=== PATIENT | female | born 1995 | race Caucasian/White ===

== ENCOUNTER 2017-04-03 21:27 | Emergency (ER) | payer OTHER ==
--- NOTE | 2017-04-03 22:48 | ED CLINICAL REPORT ---
Clinical Report - Physicians/Mid Levels [facility] [address] [place] [address] 04/03/2017 21:29 Patient: KARIN MCCAIN Time Seen: 22:11 Apr 03 2017. Arrived- By private vehicle. Historian- patient. CPT: ER phys charges level 3 (#[id number]). HISTORY OF PRESENT ILLNESS Chief Complaint: DYSURIA. 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 The symptoms are described as moderate. Modifying factors- worsened by urination. Not relieved by anything. The patient has had mild abdominal pain. The pain is described as located in the suprapubic region. She has had pain with urination and urgency of urination. The patient has had urinary frequency. Sexually active. Similar symptoms previously: As bad. Diagnosis: UTI. Recent medical care: Not recently seen/assessed. REVIEW OF SYSTEMS No nausea, vomiting, diarrhea, black stools or fever. No chills, sore throat, cough, difficulty breathing or chest pain. No skin rash. All systems otherwise negative, except as recorded above. SOCIAL HISTORY Light tobacco smoker (cigarette)- less than 1/2 a pack per day. Occasional alcohol use. History of drug use: marijuana. ADDITIONAL NOTES The nursing notes have been reviewed. PHYSICAL EXAM Vital Signs: 04/03/2017 21:39 BP: 129/77. HR: 112. RR: 20. O2 saturation: 100%. Temp: 98.5 F. Pain level now: 10/10. Appearance: Alert. No acute distress. HEENT: Normal external inspection. CVS: Heart sounds normal. Respiratory: No respiratory distress. Abdomen: Soft. Mild tenderness in the suprapubic area. Back: Normal external inspection. No CVA tenderness. Skin: Normal skin color. Extremities: Extremities nontender. Neuro: Oriented X 3. LABS, X-RAYS, AND EKG Laboratory Tests: UA-Culture if indicated: (ALEX: 04/03/2017 21:43) ( MsgRcvd 04/03/2017 22:34) Final results Test Result Flag Units (Reference) URINE COLOR YELLOW URINE APPEARANCE SLIGHTLY HAZY URINE GLUCOSE NEGATIVE (NEGATIVE) URINE BILIRUBIN NEGATIVE (NEGATIVE) URINE KETONE NEGATIVE (NEGATIVE) URINE SPECIFIC GRAVITY 1.015 (1.010-1.030) URINE PH 6.0 (5.0-8.0) URINE PROTEIN NEGATIVE (NEGATIVE) URINE UROBILINOGEN 0.2 EU/dL (0.2-1.0) URINE NITRITE NEGATIVE (NEGATIVE) URINE BLOOD 3+ (NEGATIVE) URINE LEUK ESTERASE POSITIVE (NEGATIVE) URINE RBC 10-25 rbc/hpf (0-1) URINE WBC 50-75 wbc/hpf (0-1) URINE EPITHELIAL CELLS 5-10 EPI/hpf (0-5) URINE BACTERIA FEW (1+) (NONE SEEN) URINE COMMENT CULTURE INDICATED URINE CULTURES ARE SET-UP BASED ON THE FOLLOWING CRITERIA:POSITIVE NITRITEPOSITIVE LEUKOCYTE ESTERASEGREATER THAN 10 WHITE BLOOD CELLSMODERATE (2+) OR GREATER BACTERIA Urine: (ALEX: 04/03/2017 21:43) ( MsgRcvd 04/03/2017 22:31) Final results Test Result Flag Units (Reference) URINE NEGATIVE . PROGRESS AND PROCEDURES Course of Care: Bactrim 2 po Pyridium 200 mg po Vicodin 2 po Patient is stable. Symptoms better. Patient/family counseled. Disposition: Discharged. Condition: stable. CLINICAL IMPRESSION Acute urinary tract infection with cystitis. INSTRUCTIONS Do not work tomorrow, for one day until better. Drink plenty of fluids. No sexual contact. Warnings: Further evaluation is necessary. GENERAL WARNINGS: Return or contact your physician immediately if your condition worsens or changes unexpectedly, if not improving as expected, or if other problems arise. Prescription Medications: Pyridium 200 mg: take 1 orally every 8 hours as needed for urinary problems. Dispense six (6). No refills. Substitution is permissible. Septra DS 800 mg / 160 mg: take 1 tablet orally every 12 hours for 7 days. Dispense fourteen (14). No refills. Substitution is permissible. Follow-up: Follow up with your doctor in one week. Call for an appointment. Understanding of the discharge instructions verbalized by patient and family. (Electronically signed by Rafael Nogueira MD 04/06/2017 8:52)
--- NOTE | 2017-04-03 22:48 | ED CLINICAL REPORT ---
Clinical Report - Physicians/Mid Levels [facility] [address] [place] [address] 04/03/2017 21:29 Patient: KARIN MCCAIN Time Seen: 22:11 Apr 03 2017. Arrived- By private vehicle. Historian- patient. CPT: ER phys charges level 3 (#[id number]). HISTORY OF PRESENT ILLNESS Chief Complaint: DYSURIA. 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 The symptoms are described as moderate. Modifying factors- worsened by urination. Not relieved by anything. The patient has had mild abdominal pain. The pain is described as located in the suprapubic region. She has had pain with urination and urgency of urination. The patient has had urinary frequency. Sexually active. Similar symptoms previously: As bad. Diagnosis: UTI. Recent medical care: Not recently seen/assessed. REVIEW OF SYSTEMS No nausea, vomiting, diarrhea, black stools or fever. No chills, sore throat, cough, difficulty breathing or chest pain. No skin rash. All systems otherwise negative, except as recorded above. SOCIAL HISTORY Light tobacco smoker (cigarette)- less than 1/2 a pack per day. Occasional alcohol use. History of drug use: marijuana. ADDITIONAL NOTES The nursing notes have been reviewed. PHYSICAL EXAM Vital Signs: 04/03/2017 21:39 BP: 129/77. HR: 112. RR: 20. O2 saturation: 100%. Temp: 98.5 F. Pain level now: 10/10. Appearance: Alert. No acute distress. HEENT: Normal external inspection. CVS: Heart sounds normal. Respiratory: No respiratory distress. Abdomen: Soft. Mild tenderness in the suprapubic area. Back: Normal external inspection. No CVA tenderness. Skin: Normal skin color. Extremities: Extremities nontender. Neuro: Oriented X 3. LABS, X-RAYS, AND EKG Laboratory Tests: UA-Culture if indicated: (ALEX: 04/03/2017 21:43) ( MsgRcvd 04/03/2017 22:34) Final results Test Result Flag Units (Reference) URINE COLOR YELLOW URINE APPEARANCE SLIGHTLY HAZY URINE GLUCOSE NEGATIVE (NEGATIVE) URINE BILIRUBIN NEGATIVE (NEGATIVE) URINE KETONE NEGATIVE (NEGATIVE) URINE SPECIFIC GRAVITY 1.015 (1.010-1.030) URINE PH 6.0 (5.0-8.0) URINE PROTEIN NEGATIVE (NEGATIVE) URINE UROBILINOGEN 0.2 EU/dL (0.2-1.0) URINE NITRITE NEGATIVE (NEGATIVE) URINE BLOOD 3+ (NEGATIVE) URINE LEUK ESTERASE POSITIVE (NEGATIVE) URINE RBC 10-25 rbc/hpf (0-1) URINE WBC 50-75 wbc/hpf (0-1) URINE EPITHELIAL CELLS 5-10 EPI/hpf (0-5) URINE BACTERIA FEW (1+) (NONE SEEN) URINE COMMENT CULTURE INDICATED URINE CULTURES ARE SET-UP BASED ON THE FOLLOWING CRITERIA:POSITIVE NITRITEPOSITIVE LEUKOCYTE ESTERASEGREATER THAN 10 WHITE BLOOD CELLSMODERATE (2+) OR GREATER BACTERIA Urine: (ALEX: 04/03/2017 21:43) ( MsgRcvd 04/03/2017 22:31) Final results Test Result Flag Units (Reference) URINE NEGATIVE . PROGRESS AND PROCEDURES Course of Care: Bactrim 2 po Pyridium 200 mg po Vicodin 2 po Patient is stable. Symptoms better. Patient/family counseled. Disposition: Discharged. Condition: stable. CLINICAL IMPRESSION Acute urinary tract infection with cystitis. INSTRUCTIONS Do not work tomorrow, for one day until better. Drink plenty of fluids. No sexual contact. Warnings: Further evaluation is necessary. GENERAL WARNINGS: Return or contact your physician immediately if your condition worsens or changes unexpectedly, if not improving as expected, or if other problems arise. Prescription Medications: Pyridium 200 mg: take 1 orally every 8 hours as needed for urinary problems. Dispense six (6). No refills. Substitution is permissible. Septra DS 800 mg / 160 mg: take 1 tablet orally every 12 hours for 7 days. Dispense fourteen (14). No refills. Substitution is permissible. Follow-up: Follow up with your doctor in one week. Call for an appointment. Understanding of the discharge instructions verbalized by patient and family. (Electronically signed by Rafael Nogueira MD 04/06/2017 8:52)
--- NOTE | 2017-04-03 22:48 | ED ORDER SUMMARY ---
..... Patient: KARIN MCCAIN OrderSheet [facility] VisitID: [id number] [place] [address] 21y, F Registration Date/Time: 04/03/2017 ORDER SHEET Weight: 72.5 kg (stated) Allergies: No Known Drug Allergy GENERAL ORDERS: UA-Culture if indicated Urgent (21:56 04/03/2017 HSoule per protocol) (Ack 22:00 HSoule) (22:05 SSambou R.N.) Urine Urgent (21:56 04/03/2017 HSoule per protocol) (Ack 22:00 HSoule) (22:05 Roseannembconnor R.N.) MEDICATION ORDERS: Bactrim DS PO (Tablet 800-160 mg) 2 tabs (NOW) (22:46 04/03/2017 Nicole SANDERS) (22:56 SSambconnor R.N.) Pyridium PO 200 mg (NOW) (22:47 04/03/2017 Nicole SANDERS) (22:56 Roseannembconnor R.N.) Hydrocodone-APAP PO 10/650 mg (NOW) (23:00 04/03/2017 Nicole SANDERS) (23:03 Kayleen R.N.) IV FLUIDS: ORDER SHEET NOTES: [Electronically signed by Sheriff Shirin Franco (23:04 04/03/2017)] [Electronically signed by Rafael Nogueira MD (08:52 04/06/2017)] [Electronically locked/signed by Sheriff Shirin Franco (23:04 04/03/2017)]
--- NOTE | 2017-04-03 22:48 | ED NURSING NOTES ---
Clinical Report - Nurses [facility] [address] [address] 04/03/2017 21:29 Patient: KARIN MCCAIN TRIAGE Triage time 21:41. Acuity: LEVEL 3. Chief Complaint: PAINFUL URINATION and FREQUENCY and ABDOMINAL PAIN. --21:44 Sheriff Franco R.N. 21:39 04/03/17. BP: 129/77. HR: 112. RR: 20. O2 saturation: 100%. Temp: 98.5 F. Pain level now: 06/30. --21:44 Sheriff Franco R.N. Weight: 72.5 kg stated. Height/Length: 64 inches Per Patient. BMI: 27.5. --21:40 Sheriff Franco R.N. Medications None. --21:42 Sheriff Franco R.N. Allergies No Known Drug Allergy. --21:42 Sheriff Franco R.N. History Arrived by private vehicle. Historian: patient. Accompanied by friend. Onset. (4 days ago). PAST MEDICAL HX: Denies current : 1 week. SURGERY HX: Tonsillectomy. SOCIAL HX: Smoker- current status unknown (cigarette) (3). Alcohol use; consumes liquor occasionally. History of drug use: marijuana. FALL RISK ASSESSMENT: Fall risk assessment completed. No fall risk identified. NUTRITIONAL RISK ASSESSMENT: The nutritional risk assessment revealed no deficiencies. FUNCTIONAL ASSESSMENT: Functional assessment: no impairments noted. LEARNING NEEDS ASSESSMENT: The learning needs assessment revealed no barriers. SKIN INTEGRITY ASSESSMENT: Skin integrity risk assessment completed. No skin integrity risk identified. --21:44 Sheriff Franco R.N. PROBLEMS: None. --21:42 Sheriff Franco R.N. PHYSICAL ASSESSMENT Ambulatory to room. GENERAL / NEURO / PSYCH: Alert. Oriented X 4. Appears in no acute distress. HEENT: Mucous membranes are pink. RESPIRATORY: Respirations not labored. CVS: Capillary refill less than 2 seconds. SKIN: Skin is warm and dry. --21:44 Sheriff Franco R.N. NURSING PROGRESS NOTES Head of bed elevated. Two patient identifiers checked. Call light placed in reach. Side rails up x 2. Bed placed in lowest position. Brakes of bed on. --21:44 Sheriff Franco R.N. Patient ID band checked for patient name and birthdate: patient confirmed. Instructions provided to collect clean catch urine and patient verbalized understanding. Clean catch urine collected with return of yellow-colored clear urine; sample sent to lab for urinalysis. Specimen labeled in the presence of the patient. --21:57 Arielle Ange 22:56 04/03/2017 Bactrim DS (Sulfamethoxazole-TMP DS) PO 2 tab given. Allergies verified and confirmed 5 rights. --22:56 Sheriff Franco R.N. 22:56 04/03/2017 Pyridium (Phenazopyridine HCl) PO 200 mg given. Allergies verified and confirmed 5 rights. --22:56 Sheriff Franco R.N. 23:03 04/03/2017 Hydrocodone-APAP (Hydrocodone-Acetaminophen) PO 5/325 mg Tablets 2 tab given. Allergies verified, confirmed 5 rights and sedative warning given to the patient. --23:03 Sheriff Franco R.N. DISPOSITION / DISCHARGE Condition at departure: stable. No learning barriers present. Discharge instructions provided and reviewed with the patient. Reviewed medication(s) side effects, precautions, dosing and course information. Prescription(s) given to the parent. Patient verbalized understanding. Written instructions provided in Swiss. The patient was discharged by the physician. She was discharged home and accompanied by family. She left the Emergency Department ambulatory and via private vehicle. Family member driving. --23:04 Sheriff Franco R.N. Locked/Released at 04/03/2017 23:04 by Sheriff Franco R.N.
--- NOTE | 2017-04-03 22:48 | ED ORDER SUMMARY ---
..... Patient: KARIN MCCAIN OrderSheet [facility] VisitID: [id number] [place] [address] 21y, F Registration Date/Time: 04/03/2017 ORDER SHEET Weight: 72.5 kg (stated) Allergies: No Known Drug Allergy GENERAL ORDERS: UA-Culture if indicated Urgent (21:56 04/03/2017 HSoule per protocol) (Ack 22:00 HSoule) (22:05 SSambou R.N.) Urine Urgent (21:56 04/03/2017 HSoule per protocol) (Ack 22:00 HSoule) (22:05 Roseannembconnor R.N.) MEDICATION ORDERS: Bactrim DS PO (Tablet 800-160 mg) 2 tabs (NOW) (22:46 04/03/2017 Nicole SANDERS) (22:56 SSambconnor R.N.) Pyridium PO 200 mg (NOW) (22:47 04/03/2017 Nicole SANDERS) (22:56 Roseannembconnor R.N.) Hydrocodone-APAP PO 10/650 mg (NOW) (23:00 04/03/2017 Nicole SANDERS) (23:03 Kayleen R.N.) IV FLUIDS: ORDER SHEET NOTES: [Electronically signed by Sheriff Shirin Franco (23:04 04/03/2017)] [Electronically signed by Rafael Nogueira MD (08:52 04/06/2017)] [Electronically locked/signed by Sheriff Shirin Franco (23:04 04/03/2017)]
--- NOTE | 2017-04-03 22:48 | ED NURSING NOTES ---
Clinical Report - Nurses [facility] [place] [address] [address] 04/03/2017 21:29 Patient: KARIN MCCAIN TRIAGE Triage time 21:41. Acuity: LEVEL 3. Chief Complaint: PAINFUL URINATION and FREQUENCY and ABDOMINAL PAIN. --21:44 Sheriff Franco R.N. 21:39 04/03/17. BP: 129/77. HR: 112. RR: 20. O2 saturation: 100%. Temp: 98.5 F. Pain level now: 06/30. --21:44 Sheriff Franco R.N. Weight: 72.5 kg stated. Height/Length: 64 inches Per Patient. BMI: 27.5. --21:40 Sheriff Franco R.N. Medications None. --21:42 Sheriff Franco R.N. Allergies No Known Drug Allergy. --21:42 Sheriff Franco R.N. History Arrived by private vehicle. Historian: patient. Accompanied by friend. Onset. (4 days ago). PAST MEDICAL HX: Denies current : 1 week. SURGERY HX: Tonsillectomy. SOCIAL HX: Smoker- current status unknown (cigarette) (3). Alcohol use; consumes liquor occasionally. History of drug use: marijuana. FALL RISK ASSESSMENT: Fall risk assessment completed. No fall risk identified. NUTRITIONAL RISK ASSESSMENT: The nutritional risk assessment revealed no deficiencies. FUNCTIONAL ASSESSMENT: Functional assessment: no impairments noted. LEARNING NEEDS ASSESSMENT: The learning needs assessment revealed no barriers. SKIN INTEGRITY ASSESSMENT: Skin integrity risk assessment completed. No skin integrity risk identified. --21:44 Sheriff Franco R.N. PROBLEMS: None. --21:42 Sheriff Franco R.N. PHYSICAL ASSESSMENT Ambulatory to room. GENERAL / NEURO / PSYCH: Alert. Oriented X 4. Appears in no acute distress. HEENT: Mucous membranes are pink. RESPIRATORY: Respirations not labored. CVS: Capillary refill less than 2 seconds. SKIN: Skin is warm and dry. --21:44 Sheriff Franco R.N. NURSING PROGRESS NOTES Head of bed elevated. Two patient identifiers checked. Call light placed in reach. Side rails up x 2. Bed placed in lowest position. Brakes of bed on. --21:44 Sheriff Franco R.N. Patient ID band checked for patient name and birthdate: patient confirmed. Instructions provided to collect clean catch urine and patient verbalized understanding. Clean catch urine collected with return of yellow-colored clear urine; sample sent to lab for urinalysis. Specimen labeled in the presence of the patient. --21:57 Arielle Ange 22:56 04/03/2017 Bactrim DS (Sulfamethoxazole-TMP DS) PO 2 tab given. Allergies verified and confirmed 5 rights. --22:56 Sheriff Franco R.N. 22:56 04/03/2017 Pyridium (Phenazopyridine HCl) PO 200 mg given. Allergies verified and confirmed 5 rights. --22:56 Sheriff Franco R.N. 23:03 04/03/2017 Hydrocodone-APAP (Hydrocodone-Acetaminophen) PO 5/325 mg Tablets 2 tab given. Allergies verified, confirmed 5 rights and sedative warning given to the patient. --23:03 Sheriff Franco R.N. DISPOSITION / DISCHARGE Condition at departure: stable. No learning barriers present. Discharge instructions provided and reviewed with the patient. Reviewed medication(s) side effects, precautions, dosing and course information. Prescription(s) given to the parent. Patient verbalized understanding. Written instructions provided in Tunisian. The patient was discharged by the physician. She was discharged home and accompanied by family. She left the Emergency Department ambulatory and via private vehicle. Family member driving. --23:04 Sheriff Franco R.N. Locked/Released at 04/03/2017 23:04 by Sheriff Franco R.N.
--- NOTE | 2017-04-06 08:52 | ED MED RECONCILIATION SUMMARY ---
Patient: KARIN MCCAIN Medication Reconciliation Report [facility] VisitID: [id number] [place] [address] 21y, F Registration Date/Time: 04/03/2017 Weight: 72.5 kg Height/Length: 64 in. BMI: 27.5 ALLERGIES: No Known Drug Allergy The patient's Home Medications are listed below: NONE. The source(s) of the original Home Medication information: Not obtained. The following Medications were given to the patient in the Emergency Department: Bactrim DS [PO] PO 2 tab, administered: 04/03/2017 10:56:00 PM Pyridium [PO] PO 200 mg, administered: 04/03/2017 10:56:00 PM Hydrocodone-APAP [PO] PO 2 tab, administered: 04/03/2017 11:03:00 PM The following Medications were prescribed to the patient: Pyridium 200 mg: take 1 orally every 8 hours as needed for urinary problems. Dispense six (6). No refills. Substitution is permissible. -- Rafael Nogueira MD Septra DS 800 mg / 160 mg: take 1 tablet orally every 12 hours for 7 days. Dispense fourteen (14). No refills. Substitution is permissible. -- Rafael Nogueira MD
--- NOTE | 2017-04-06 08:52 | ED MED RECONCILIATION SUMMARY ---
Patient: KARIN MCCAIN Medication Reconciliation Report [facility] VisitID: [id number] [place] [address] 21y, F Registration Date/Time: 04/03/2017 Weight: 72.5 kg Height/Length: 64 in. BMI: 27.5 ALLERGIES: No Known Drug Allergy The patient's Home Medications are listed below: NONE. The source(s) of the original Home Medication information: Not obtained. The following Medications were given to the patient in the Emergency Department: Bactrim DS [PO] PO 2 tab, administered: 04/03/2017 10:56:00 PM Pyridium [PO] PO 200 mg, administered: 04/03/2017 10:56:00 PM Hydrocodone-APAP [PO] PO 2 tab, administered: 04/03/2017 11:03:00 PM The following Medications were prescribed to the patient: Pyridium 200 mg: take 1 orally every 8 hours as needed for urinary problems. Dispense six (6). No refills. Substitution is permissible. -- Rafael Nogueira MD Septra DS 800 mg / 160 mg: take 1 tablet orally every 12 hours for 7 days. Dispense fourteen (14). No refills. Substitution is permissible. -- Rafael Nogueira MD
--- NOTE | 2017-04-06 08:52 | ED MAR SUMMARY ---
..... Medication Administration Record [facility] [address] [place] [address] Patient: KARIN MCCAIN Visit ID: [id number] 21y, F Weight: 72.5 kg Height/Length: 64 in BMI: 27.5 ALLERGIES: No Known Drug Allergy Given 22:04/03/2017 Sheriff Joan RSamNSam Medication Administered: BACTRIM DS [PO] (SULFAMETHOXAZOLE-TMP DS), Dose: 2 tab PO. Medication Ordered: Bactrim DS PO (Tablet 800-160 mg) 2 tabs (NOW). Given 22:04/03/2017 Sheriff Joan RSamN. Medication Administered: PYRIDIUM [PO] (PHENAZOPYRIDINE HCL), Dose: 200 mg PO. Medication Ordered: Pyridium PO 200 mg (NOW). Given 23:03 04/03/2017 Sheriff Joan, RSamNSam Medication Administered: HYDROCODONE-APAP [PO] (HYDROCODONE-ACETAMINOPHEN), Dose: 2 tab 5/325 mg Tablets PO. Medication Ordered: Hydrocodone-APAP PO 10/650 mg (NOW).
--- NOTE | 2017-04-06 08:52 | ED MAR SUMMARY ---
..... Medication Administration Record [facility] [address] [place] [address] Patient: KARIN MCCAIN Visit ID: [id number] 21y, F Weight: 72.5 kg Height/Length: 64 in BMI: 27.5 ALLERGIES: No Known Drug Allergy Given 22:04/03/2017 Sheriff Joan RSamNSam Medication Administered: BACTRIM DS [PO] (SULFAMETHOXAZOLE-TMP DS), Dose: 2 tab PO. Medication Ordered: Bactrim DS PO (Tablet 800-160 mg) 2 tabs (NOW). Given 22:04/03/2017 Sheriff Joan RSamN. Medication Administered: PYRIDIUM [PO] (PHENAZOPYRIDINE HCL), Dose: 200 mg PO. Medication Ordered: Pyridium PO 200 mg (NOW). Given 23:03 04/03/2017 Sheriff Joan, RSamNSam Medication Administered: HYDROCODONE-APAP [PO] (HYDROCODONE-ACETAMINOPHEN), Dose: 2 tab 5/325 mg Tablets PO. Medication Ordered: Hydrocodone-APAP PO 10/650 mg (NOW).
--- NOTE | 2017-04-06 08:52 | ED DISCHARGE INSTRUCTIONS ---
Patient: KARIN MCCAIN General Instructions [facility] VisitID: [id number] [place] [address] 21y, F Registration Date/Time: 04/03/2017 Acute urinary tract infection with cystitis. INSTRUCTIONS Do not work tomorrow, for one day until better. Drink plenty of fluids. No sexual contact. Warnings: Further evaluation is necessary. GENERAL WARNINGS: Return or contact your physician immediately if your condition worsens or changes unexpectedly, if not improving as expected, or if other problems arise. Prescription Medications: Pyridium 200 mg: take 1 orally every 8 hours as needed for urinary problems. Dispense six (6). No refills. Substitution is permissible. Septra DS 800 mg / 160 mg: take 1 tablet orally every 12 hours for 7 days. Dispense fourteen (14). No refills. Substitution is permissible. Follow-up: Follow up with your doctor in one week. Call for an appointment. Understanding of the discharge instructions verbalized by patient and family. ADDITIONAL INFORMATION Bladder Infection,Female (Adult) A bladder infection ("cystitis" or "UTI") usually causes a constant urge to urinate and a burning when passing urine. Urine may be cloudy, smelly or dark. There may be pain in the lower abdomen. A bladder infection occurs when bacteria from the vaginal area enter the bladder opening (urethra). This can occur from sexual intercourse, wearing tight clothing, dehydration and other factors. Home Care: Drink lots of fluids (at least 6-8 glasses a day, unless you must restrict fluids for other medical reasons). This will force the medicine into your urinary system and flush the bacteria out of your body. Avoid sexual intercourse until your symptoms are gone. Avoid caffeine, alcohol and spicy foods. These can irritate the bladder. A bladder infection is treated with antibiotics. You may also be given Pyridium (generic = phenazopyridine) to reduce the burning sensation. This medicine will cause your urine to become a bright orange color. The orange urine may stain clothing. You may wear a pad or panty-liner to protect clothing. Preventing Future Infections: Always wipe from front to back after a bowel movement. Keep the genital area clean and dry. Drink plenty of fluids each day to avoid dehydration. Both sexual partners should wash before intercourse. Urinate right after intercourse to flush out the bladder. Wear cotton underwear and cotton-lined panty hose; avoid tight-fitting pants. If you are on control pills and are having frequent bladder infections, discuss with your doctor. Follow Up: Return to this facility or see your doctor if ALL symptoms are not gone after three days of treatment. Get Prompt Medical Attention if any of the following occur: Fever of 100.4F (38C) or higher, or as directed by your healthcare provider No improvement by the third day of treatment Increasing back or abdominal pain Repeated vomiting; unable to keep medicine down Weakness, dizziness or fainting Vaginal discharge Pain, redness or swelling in the labia (outer vaginal area) You have been given the following additional information: Bladder Infection, Female (Adult) Do not work tomorrow, for one day until better. (Electronically signed by Rafael Nogueira MD 04/06/2017 8:52)
== END 2017-04-03 23:03 | disposition home or self-care (01) ==
LOC: ED SRH 21:27
DX: N30.00 Acute cystitis without hematuria (principal); B95.7 Other staphylococcus as the cause of diseases classified elsewhere; F17.210 Nicotine dependence, cigarettes, uncomplicated
CPT/HCPCS: 90004; 90469; 91672; 93070